=== PATIENT | male | born 1970 | race Caucasian/White ===

== ENCOUNTER 2018-01-27 20:38 | Emergency (ER) | payer BC ==
--- NOTE | 2018-01-27 20:41 | EDM.PDOC ---
ED HPI GENERAL MEDICAL PROBLEM - General Chief Complaint: Lower Extremity Injury/Pain Stated Complaint: LT LEG BRUISING Time Seen by Provider: 01/27/18 20:40 Source of Information: Reports: Patient History Limitations: Reports: No Limitations - History of Present Illness INITIAL COMMENTS - FREE TEXT/NARRATIVE: HISTORY AND PHYSICAL: History of present illness: 47-year-old male presenting in the [place] department with chief complaint of bruising to the left lower extremity. Patient broke his left ankle on Sunday one week ago and had plates place by Dr. Blankenship. Today he noticed so brusing going into his upper thigh and was concerned. It is not painful and he does admit to having his leg elevated like instructed. Denies loss of sensation or worsening pain. On exam patient has mild eccymosis to the need and above left groing. Discuss this normal brusing after surgery and is secondary to blood pooling. Review of systems: As per history of present illness and below otherwise all systems reviewed and negative. Past medical history: As per history of present illness and as reviewed below otherwise noncontributory. Surgical history: As per history of present illness and as reviewed below otherwise noncontributory. Social history: No reported history of drug or alcohol abuse. Family history: As per history of present illness and as reviewed below otherwise noncontributory. Physical exam: HEENT: Atraumatic, normocephalic, pupils reactive, negative for conjunctival pallor or scleral icterus, mucous membranes moist, throat clear, neck supple, nontender, trachea midline. Lungs: Clear to auscultation, breath sounds equal bilaterally, chest nontender. Heart: S1S2, regular, negative for clicks, rubs, or JVD. Abdomen: Soft, nondistended, nontender. Negative for masses or hepatosplenomegaly. Negative for costovertebral tenderness. Pelvis: Stable nontender. Genitourinary: Deferred. Rectal: Deferred. Extremities: Left lower leg soft splint in place, negative for cords or calf pain. Neurovascular unremarkable. Neuro: Awake, alert, oriented. Cranial nerves II through XII unremarkable. Cerebellum unremarkable. Motor and sensory unremarkable throughout. Exam nonfocal. Diagnostics: [] Therapeutics: [] Impression: Ecchymosis Plan: Reassured patient that this is normal bruising from blood pooling. Instructed him to call Dr. Blankenship's office tomorrow and follow-up with them. He should return to the emergency department if any new or worsening symptoms. Definitive disposition and diagnosis as appropriate pending reevaluation and review of above. L lower leg, Pain Score (Numeric/FACES): 3 - Related Data Allergies Allergy/AdvReac Type Severity Reaction Status Date / Time No Known Allergies Allergy Verified 01/27/18 20:53 Home Meds: Home Meds Ketorolac [Toradol] 10 mg PO ASDIRECTED PRN 01/22/18 [History] Acetaminophen/HYDROcodone [Turlock 325-5 MG] 1 - 2 tab PO Q4H PRN #80 tablet 01/23 [Rx] Past Medical History - Past Health History Medical/Surgical History: Denies Medical/Surgical History HEENT History: Reports: Other (See Below) Other HEENT History: uses reading glasses Cardiovascular History: Reports: None Respiratory History: Reports: Other (See Below) Other Respiratory History: his girlfriend thinks he has sleep apnea Gastrointestinal History: Reports: None Genitourinary History: Reports: None Musculoskeletal History: Reports: None Neurological History: Reports: None Psychiatric History: Reports: None Endocrine/Metabolic History: Reports: None Hematologic History: Reports: None Immunologic History: Reports: None Oncologic (Cancer) History: Reports: None Dermatologic History: Reports: None - Infectious Disease History Infectious Disease History: Reports: None - Past Surgical History Head Surgeries/Procedures: Reports: None Social & Family History - Family History Family Medical History: Noncontributory - Caffeine Use Caffeine Use: Reports: Energy Drinks Review of Systems - Review of Systems Review Of Systems: ROS reveals no pertinent complaints other than HPI. ED EXAM, GENERAL - Physical Exam Exam: See Below Course - Vital Signs Last Recorded V/S: Last Vital Signs Temp 97.8 F 01/27/18 20:49 Pulse 95 01/27/18 20:49 Resp 12 01/27/18 20:49 BP 125/88 01/27/18 20:49 Pulse Ox 93 L 01/27/18 20:49 Departure - Departure Time of Disposition: 21:10 Disposition: Home, Self-Care 01 Condition: Good Clinical Impression: Ecchymosis - Discharge Information Forms: ED Department Discharge Additional Instructions: My general discharge The following information is given to patients seen in the emergency department who are being discharged to home. This information is to outline your options for follow-up care. We provide all patients seen in our emergency department with a follow-up referral. The need for follow-up, as well as the timing and circumstances, are variable depending upon the specifics of your emergency department visit. If you don't have a primary care physician on staff, we will provide you with a referral. We always advise you to contact your personal physician following an emergency department visit to inform them of the circumstance of the visit and for follow-up with them and/or the need for any referrals to a consulting specialist. The emergency department will also refer you to a specialist when appropriate. This referral assures that you have the opportunity for follow-up care with a specialist. All of these measure are taken in an effort to provide you with optimal care, which includes your follow-up. Under all circumstances we always encourage you to contact your private physician who remains a resource for coordinating your care. When calling for follow-up care, please make the office aware that this follow-up is from your recent emergency room visit. If for any reason you are refused follow-up, please contact the [facility] Emergency Department at and asked to speak to the emergency department charge nurse. [facility] - [facility] [address], [address] [place] [address] Please call and follow-up with Dr. Blankenship's office as we discussed. Take medications as prescribed. Return to emergency department if any new or worsening symptoms.
[2018-01-27 21:21] VITALS: BP 180/79
== END 2018-01-27 21:19 | disposition home or self-care (01) ==
LOC: MW.ED 20:38
DX: S80.12XA Contusion of left lower leg, initial encounter (principal); X58.XXXA Exposure to other specified factors, initial encounter
CPT/HCPCS: 99282; 99283

== ENCOUNTER 2018-07-25 20:17 | Emergency (ER) | payer BC ==
--- NOTE | 2018-07-25 20:55 | EDM.PDOC ---
ED HPI GENERAL MEDICAL PROBLEM - General Chief Complaint: Lower Extremity Injury/Pain Stated Complaint: HURT BACK OF ANKLE Time Seen by Provider: 07/25/18 20:40 Source of Information: Reports: Patient History Limitations: Reports: No Limitations - History of Present Illness INITIAL COMMENTS - FREE TEXT/NARRATIVE: HISTORY AND PHYSICAL: History of present illness: Patient is a 47-year-old male who presents with complaints of pain to the back of his right ankle. He states he was playing soccer, but was walking when he heard and felt a "pop". He was continued to ambulate and bear weight without any difficulty but did have some soft tissue swelling and pain associated with this. He thought he may have ruptured or tore his Achilles tendon. He has had no weakness and has full range of motion and strength of his foot. Denies any numbness or tingling to the affected extremity. No previous injury or surgeries of the affected extremity. Review of systems: As per history of present illness and below otherwise all systems reviewed and negative. Past medical history: As per history of present illness and as reviewed below otherwise noncontributory. Surgical history: As per history of present illness and as reviewed below otherwise noncontributory. Social history: See social history for further information Family history: As per history of present illness and as reviewed below otherwise noncontributory. Physical exam: General: Well-developed and well-nourished 47-year-old male. Alert and oriented. Nontoxic appearing and in no acute distress. HEENT: Atraumatic, normocephalic, pupils equal and reactive bilaterally, negative for conjunctival pallor or scleral icterus, mucous membranes moist, TMs normal bilaterally, throat clear, neck supple, nontender, trachea midline. No drooling or trismus noted. No meningeal signs. No hot potato voice noted. Lungs: Clear to auscultation, breath sounds equal bilaterally, chest nontender. Heart: S1S2, regular rate and rhythm without overt murmur Abdomen: Soft, nondistended, nontender. Negative for masses or hepatosplenomegaly. Negative for costovertebral tenderness. Pelvis: Stable nontender. Genitourinary: Deferred. Rectal: Deferred. Skin: Intact, warm, dry. No lesions or rashes noted. Extremities: Moves all extremities per self without difficulty or deficits. He is able to flex and extend the right foot with equal/good strength. +Hayes test on right. Does have some mild swelling and pain with palpation to distal achilles area. No calf pain and is negative for cords. Neurovascular unremarkable. Neuro: Awake, alert, oriented. Cranial nerves II through XII unremarkable. Cerebellum unremarkable. Motor and sensory unremarkable throughout. Exam nonfocal. Notes: We'll do an x-ray as he was doing physical activity when this occurred to rule out any fracture or dislocations. Although I suspect this is a partial Achilles tendon tear. I encouraged him to follow-up with the orthopedic provider for further evaluation and management. We'll give him CAM walker boot and crutches for comfort and to be nonweightbearing. She was reviewed and discussed. He voices understanding and is agreeable to plan of care. Denies any further questions or concerns at this time. Diagnostics: X-ray Therapeutics: CAM walker boot, crutches Prescription: Tramadol (#15) Impression: Suspected achilles tendon tear, right Plan: 1. Please rest, ice and elevate the affected extremity as able. Use the CAM walker boot and crutches to be nonweight bearing until evaluated by the orthopedic provider. I would like you to follow-up them in the next 1-2 days. 2. Tylenol and/or ibuprofen as needed for pain management. Tramadol for moderate to severe pain. 3. Return to the ED as needed as discussed. Definitive disposition and diagnosis as appropriate pending reevaluation and review of above. right lower leg Pain Score (Numeric/FACES): 9 - Related Data Allergies Allergy/AdvReac Type Severity Reaction Status Date / Time No Known Allergies Allergy Verified 07/25/18 21:06 Home Meds: Home Meds Anti-Inflammatory 07/25/18 [History] Past Medical History - Past Health History Medical/Surgical History: Denies Medical/Surgical History HEENT History: Reports: Other (See Below) Other HEENT History: uses reading glasses Cardiovascular History: Reports: None Respiratory History: Reports: Other (See Below) Other Respiratory History: his girlfriend thinks he has sleep apnea Gastrointestinal History: Reports: None Genitourinary History: Reports: None Musculoskeletal History: Reports: None Neurological History: Reports: None Psychiatric History: Reports: None Endocrine/Metabolic History: Reports: None Hematologic History: Reports: None Immunologic History: Reports: None Oncologic (Cancer) History: Reports: None Dermatologic History: Reports: None - Infectious Disease History Infectious Disease History: Reports: None - Past Surgical History Head Surgeries/Procedures: Reports: None Social & Family History - Family History Family Medical History: Noncontributory - Caffeine Use Caffeine Use: Reports: Energy Drinks Review of Systems - Review of Systems Review Of Systems: ROS reveals no pertinent complaints other than HPI. ED EXAM, GENERAL - Physical Exam Exam: See Below (See dictation) Course - Vital Signs Last Recorded V/S: Last Vital Signs Temp 96.6 F 07/25/18 21:03 Pulse 86 07/25/18 21:03 Resp 19 07/25/18 21:03 BP 129/92 H 07/25/18 21:03 Pulse Ox 95 07/25/18 21:03 - Orders/Labs/Meds Orders: Active Orders 24 hr Category Date Time Status Ankle Min 3V Rt [CR] Stat Exams 07/25/18 21:06 Ordered DME for Discharge [COMM] Stat Oth 07/25/18 21:06 Ordered Meds: Medications Discontinued Medications Generic Name Dose Route Start Last Admin Trade Name Kevin PRN Reason Stop Dose Admin Hydrocodone Bitart/Acetaminophen 1 tab 07/25/18 21:06 Veyo 325-5 Mg PO 07/25/18 21:07 ONETIME ONE Departure - Departure Time of Disposition: 21:47 Disposition: Home, Self-Care 01 Clinical Impression: Achilles tendon tear Qualifiers: Encounter type: initial encounter Laterality: right Qualified Code(s): S86.011A - Strain of right Achilles tendon, initial encounter - Discharge Information Referrals: PCP,None [Primary Care Provider] - Forms: ED Department Discharge Additional Instructions: The following information is given to patients seen in the emergency department who are being discharged to home. This information is to outline your options for follow-up care. We provide all patients seen in our emergency department with a follow-up referral. The need for follow-up, as well as the timing and circumstances, are variable depending upon the specifics of your emergency department visit. If you don't have a primary care physician on staff, we will provide you with a referral. We always advise you to contact your personal physician following an emergency department visit to inform them of the circumstance of the visit and for follow-up with them and/or the need for any referrals to a consulting specialist. The emergency department will also refer you to a specialist when appropriate. This referral assures that you have the opportunity for follow-up care with a specialist. All of these measure are taken in an effort to provide you with optimal care, which includes your follow-up. Under all circumstances we always encourage you to contact your private physician who remains a resource for coordinating your care. When calling for follow-up care, please make the office aware that this follow-up is from your recent emergency room visit. If for any reason you are refused follow-up, please contact the [facility] Emergency Department at and asked to speak to the emergency department charge nurse. [facility] [address], [place] [address] [address] [facility] Special[facility] - [facility]opedic [facility] Professional [facility] [address] [place] [address], [address] [place] [address] 1. Please rest, ice and elevate the affected extremity as able. Use the CAM walker boot and crutches to be nonweight bearing until evaluated by the orthopedic provider. I would like you to follow-up them in the next 1-2 days. 2. Tylenol and/or ibuprofen as needed for pain management. Tramadol for moderate to severe pain. 3. Return to the ED as needed as discussed. - My Orders Last 24 Hours: My Active Orders 07/25/18 21:06 Ankle Min 3V Rt [CR] Stat DME for Discharge [COMM] Stat - Assessment/Plan Last 24 Hours: My Active Orders 07/25/18 21:06 Ankle Min 3V Rt [CR] Stat DME for Discharge [COMM] Stat
[2018-07-25] MEDS ORDERED: Acetaminophen/HYDROcodone 325-5 MG Tab PO ONE (21:06)
--- NOTE | 2018-07-25 21:56 | CR ---
INDICATION: Pain. TECHNIQUE: Three views. IMPRESSION: No acute fracture. Ankle mortise is in anatomic alignment. Mild degenerative narrowing and spurring anterior and medial margin of the tibiotalar ankle joint. No effusion. Dictated by Kirill Rene MD @ Jul 25 2018 9:54PM Signed by Dr. Kirill Rene @ Jul 25 2018 9:55PM
[2018-07-25 22:30] VITALS: BP 123/87
== END 2018-07-25 22:31 | disposition home or self-care (01) ==
LOC: MW.ED 20:17
DX: S86.011A Strain of right Achilles tendon, initial encounter (principal); X58.XXXA Exposure to other specified factors, initial encounter; Y93.66 Activity, soccer
CPT/HCPCS: 73610; 99283; A9270

== ENCOUNTER 2023-10-19 22:12 | Inpatient (IN) | payer BC, MEDICAID, OTHER ==
[2023-10-20] MEDS: Morphine 4 MG/ML Syringe IVPUSH ONE
[2023-10-20] MEDS: Ketamine 500 mg/10 ML MDV IV ONE (01:18)
[2023-10-20] MEDS: Propofol 200 MG/20 ML SDV IVPUSH ONE (01:19)
[2023-10-20] MEDS: Sodium Chloride 0.9% 1,000 ML IV ONE (01:20)
[2023-10-20 09:51] LABS: APPEARANCE,URINE CLEAR; COLOR,URINE ORANGE; GLUCOSE,URINE 500 mg/dL (NEGATIVE); KETONES,URINE 15 mg/dL (NEGATIVE); LEUKOCYTE ESTERASE,URINE NEGATIVE (NEGATIVE); NITRITE,URINE POSITIVE (NEGATIVE); OCCULT BLOOD,URINE NEGATIVE (NEGATIVE); PROTEIN,URINE 30 mg/dL (NEGATIVE)
[2023-10-20 09:57] LABS: BILIRUBIN,URINE MODERATE (NEGATIVE)
[2023-10-20 10:02] LABS: BACTERIA,URINE FEW (NEGATIVE); EPITHELIAL CELLS,URINE RARE (NONE-FEW); RBC,URINE 0-2 (0-2/HPF); WBC,URINE 0-1 (0-5/HPF)
[2023-10-20 10:03] LABS: MUCUS,URINE HEAVY (NONE-MOD)
[2023-10-20 10:09] LABS: BASOPHILS ABSOLUTE AUTO 0.06 K/uL (0.00-0.20); BASOPHILS PERCENT AUTO 0.8 % (0.0-1.0); EOSINOPHILS ABSOLUTE AUTO 0.02 K/uL (0.00-0.45); EOSINOPHILS PERCENT AUTO 0.3 % (0.0-6.0); HEMATOCRIT 32.4 % (42.0-52.0); HEMOGLOBIN 11.7 g/dL (14.0-18.0); IMMATURE GRAN ABSOLUTE AUTO 0.01 K/uL (0.00-0.05); IMMATURE GRAN PERCENT AUTO 0.1 % (0.0-0.4); LYMPHOCYTES ABSOLUTE AUTO 1.52 K/uL (1.00-4.80); LYMPHOCYTES PERCENT AUTO 21.1 % (24.0-44.0); MEAN CORPUSCULAR HGB CONC 36.1 g/dL (32.0-36.0); MEAN PLATELET VOLUME 10.4 fL (9.4-12.4); MONOCYTES ABSOLUTE AUTO 0.96 K/uL (0.00-0.80); MONOCYTES PERCENT AUTO 13.3 % (0.0-8.0); NEUTROPHILS ABSOLUTE AUTO 4.65 K/uL (1.80-7.70); NEUTROPHILS PERCENT AUTO 64.4 % (41.0-71.0); PLATELET COUNT,PLT 115 K/uL (150-400); RED BLOOD CELL COUNT 3.34 M/uL (4.52-5.90); WHITE BLOOD CELL COUNT,WBC 7.22 K/uL (3.9-11.3)
[2023-10-20 10:31] LABS: CALCIUM 7.7 mg/dL (8.5-10.1); CARBON DIOXIDE,CO2 21.4 mmol/L (21.0-32.0); CREATININE 0.7 mg/dL (0.8-1.3); EST CRCL DRUG DOSING (CG) 111.4 mL/min; POTASSIUM,K 2.8 mmol/L (3.5-5.1)
[2023-10-20] MEDS: Potassium Chloride 20 MEQ Tab.ER PO ONE (11:13)
[2023-10-20] MEDS: NS with KCl 40mEq 1,000 ML IV SCH (11:14)
[2023-10-20] MEDS: Magnesium Sulfate/Water 2 GM in Premix Bag 1 BAG IV ONE ×2 (11:43→19:00)
[2023-10-20] MEDS: cefTRIAXone 1 GM in Sodium Chloride 0.9% 50 ML IV ONE (11:44)
[2023-10-20] MEDS ORDERED: Thiamine 100 MG in Sodium Chloride 0.9% 100 ML IV SCH (14:00)
[2023-10-20] MEDS ORDERED: Acetaminophen 325 MG Tab PO PRN (14:01)
[2023-10-20] MEDS ORDERED: Polyethylene Glycol 3350 Powder 17 GM Packet PO PRN (14:01)
[2023-10-20] MEDS ORDERED: Acetaminophen 650 MG Supp RECTAL PRN (14:01)
[2023-10-20] MEDS: Thiamine 200 MG/2 ML MDV IVPUSH SCH (16:54)
[2023-10-20] MEDS: Folic Acid 1 MG/0.2 ML UD Syringe IV SCH (16:54)
[2023-10-20] MEDS: Pantoprazole 40 MG in Sodium Chloride 0.9% 10 ML IVPUSH SCH (16:55)
[2023-10-20 17:24] LABS: CALCIUM 7.6 mg/dL (8.5-10.1); CARBON DIOXIDE,CO2 23.1 mmol/L (21.0-32.0); CREATININE 0.8 mg/dL (0.8-1.3); EST CRCL DRUG DOSING (CG) 97.47 mL/min; MAGNESIUM 1.6 mg/dL (1.8-2.4); POTASSIUM,K 4.3 mmol/L (3.5-5.1)
[2023-10-20] MEDS: Sodium Chloride 0.9% 1,000 ML IV SCH (18:56)
[2023-10-20] MEDS: Sulfamethoxazole/Trimethoprim 800-160 MG Tab PO SCH (19:01)
[2023-10-20 19:24] LABS: A/G RATIO 0.7 (0.9-1.6); ALBUMIN 2.6 g/dL (3.4-5.0); BILIRUBIN TOTAL 4.8 mg/dL (0.2-1.0); CALCIUM 7.7 mg/dL (8.5-10.1); CARBON DIOXIDE,CO2 21.3 mmol/L (21.0-32.0); CREATININE 0.8 mg/dL (0.8-1.3); EST CRCL DRUG DOSING (CG) 97.47 mL/min; PHOSPHORUS 1.7 mg/dL (2.6-4.7); POTASSIUM,K 4.3 mmol/L (3.5-5.1); PROTEIN TOTAL,TP 6.4 g/dL (6.4-8.2); TSH ULTRASENSITIVE 1.03 uIU/mL (0.36-3.74)
[2023-10-21 00:50] LABS: C. TRACHOMATIS BY PCR NOT DETECTED; N. GONORRHOEAE BY PCR NOT DETECTED
[2023-10-21] MEDS: Melatonin 3 MG Tab PO PRN (03:12)
[2023-10-21 05:49] LABS: HEMATOCRIT 30.5 % (42.0-52.0); HEMOGLOBIN 10.9 g/dL (14.0-18.0); MEAN CORPUSCULAR HEMOGLOBIN 34.8 pg (28.0-32.0); MEAN CORPUSCULAR HGB CONC 35.7 g/dL (32.0-36.0); MEAN CORPUSCULAR VOLUME 97.4 fL (83.0-99.0); MEAN PLATELET VOLUME 11.5 fL (9.4-12.4); PLATELET COUNT,PLT 109 K/uL (150-400); RED BLOOD CELL COUNT 3.13 M/uL (4.52-5.90); WHITE BLOOD CELL COUNT,WBC 5.62 K/uL (3.9-11.3)
[2023-10-21 06:22] LABS: A/G RATIO 0.7 (0.9-1.6); ALBUMIN 2.7 g/dL (3.4-5.0); BILIRUBIN TOTAL 4.5 mg/dL (0.2-1.0); CALCIUM 7.7 mg/dL (8.5-10.1); CARBON DIOXIDE,CO2 25.7 mmol/L (21.0-32.0); CREATININE 0.8 mg/dL (0.8-1.3); EST CRCL DRUG DOSING (CG) 97.47 mL/min; MAGNESIUM 1.8 mg/dL (1.8-2.4); PHOSPHORUS 1.1 mg/dL (2.6-4.7); POTASSIUM,K 3.8 mmol/L (3.5-5.1); PROTEIN TOTAL,TP 6.8 g/dL (6.4-8.2)
[2023-10-21] MEDS: Sodium Chloride 1 GM Tab PO ONE (08:28)
[2023-10-21] MEDS: Phosphorus #1 250 MG Tab PO SCH (08:33)
[2023-10-21] MEDS: Cyanocobalamin (Vitamin B12) 500 MCG Tab PO SCH (12:23)
[2023-10-21] MEDS ORDERED: Thiamine 200 MG/2 ML MDV IVPUSH ONE (12:23)
[2023-10-21] MEDS ORDERED: Thiamine 500 MG in Sodium Chloride 0.9% 100 ML IV SCH (14:00)
[2023-10-21 14:31] LABS: CREATININE 0.9 mg/dL (0.8-1.3); EST CRCL DRUG DOSING (CG) 86.64 mL/min; POTASSIUM,K 4.3 mmol/L (3.5-5.1)
[2023-10-21] MEDS: Thiamine 500 MG in Sodium Chloride 0.9% 250 ML IV SCH (14:32)
[2023-10-22] MEDS: LORazepam 1 MG Tab PO PRN (03:01)
[2023-10-22 07:07] LABS: HEMATOCRIT 29.2 % (42.0-52.0); HEMOGLOBIN 9.9 g/dL (14.0-18.0); MEAN CORPUSCULAR HEMOGLOBIN 33.6 pg (28.0-32.0); MEAN CORPUSCULAR HGB CONC 33.9 g/dL (32.0-36.0); MEAN PLATELET VOLUME 11.6 fL (9.4-12.4); PLATELET COUNT,PLT 114 K/uL (150-400); RED BLOOD CELL COUNT 2.95 M/uL (4.52-5.90); WHITE BLOOD CELL COUNT,WBC 4.92 K/uL (3.9-11.3)
[2023-10-22 07:28] LABS: A/G RATIO 0.7 (0.9-1.6); ALBUMIN 2.6 g/dL (3.4-5.0); CALCIUM 8.1 mg/dL (8.5-10.1); CARBON DIOXIDE,CO2 23.4 mmol/L (21.0-32.0); CREATININE 0.8 mg/dL (0.8-1.3); EST CRCL DRUG DOSING (CG) 97.47 mL/min; MAGNESIUM 1.3 mg/dL (1.8-2.4); PHOSPHORUS 1.8 mg/dL (2.6-4.7); PROTEIN TOTAL,TP 6.5 g/dL (6.4-8.2)
[2023-10-22] MEDS ORDERED: Thiamine 200 MG/2 ML MDV IVPUSH SCH (09:00)
[2023-10-22] MEDS: Magnesium Sulfate/Water 4 GM in Premix Bag 1 BAG IV ONE (09:20)
[2023-10-22] MEDS: Phosphorus #1 250 MG Tab PO SCH (09:28)
[2023-10-22] MEDS: Ondansetron 4 MG/2 ML SDV IVPUSH PRN (09:34)
[2023-10-22] MEDS ORDERED: PHENobarbital 32.4 MG Tab PO PRN ×4 (10:28→10:36)
[2023-10-22] MEDS ORDERED: PHENobarbitaL sodium 260 MG in Sodium Chloride 0.9% 100 ML IV PRN (10:28)
[2023-10-22] MEDS ORDERED: PHENobarbital Sodium 130 MG/ML SDV IVPUSH PRN (10:28)
[2023-10-22] MEDS: PHENobarbital 32.4 MG Tab PO PRN (12:55)
[2023-10-22 16:12] LABS: CALCIUM 8.2 mg/dL (8.5-10.1); CARBON DIOXIDE,CO2 23.6 mmol/L (21.0-32.0); CREATININE 0.7 mg/dL (0.8-1.3); EST CRCL DRUG DOSING (CG) 111.4 mL/min; MAGNESIUM 2.4 mg/dL (1.8-2.4); PHOSPHORUS 2.6 mg/dL (2.6-4.7); POTASSIUM,K 3.9 mmol/L (3.5-5.1)
[2023-10-22 17:18] VITALS: BP 103/72; PULSE 97
[2023-10-25] MEDS ORDERED: Thiamine 250 MG in Sodium Chloride 0.9% 100 ML IV SCH (09:00)
== END 2023-10-22 18:45 | disposition left against medical advice (07) | DRG 894 ==
LOC: MW.ED 22:12 → MW.MS 10-20 12:35 → OBSVTOIN 10-22 10:29
PROVIDERS: ADMIT Family Medicine; ATTEND Family Medicine
DX: F10.139 Alcohol abuse with withdrawal, unspecified (principal); N39.0 Urinary tract infection, site not specified; E51.2 Wernicke's encephalopathy; E83.42 Hypomagnesemia; E87.6 Hypokalemia; E83.51 Hypocalcemia; S43.014A Anterior dislocation of right humerus, initial encounter; W10.8XXA Fall (on) (from) other stairs and steps, initial encounter; R31.9 Hematuria, unspecified; Z86.16 Personal history of COVID-19; Z87.891 Personal history of nicotine dependence
CPT/HCPCS: 23655; 36415; 70450; 70450-26; 71101-26-RT; 71101-RT; 72125; 72125-26; 73030-26-RT; 73030-RT; 73060-26-RT; 73060-RT; 73080-26-RT; 73080-RT; 80048; 80053; 80307; 81001; 82550; 82947; 83690; 83735; 84100; 84443; 85025; 85027; 87491; 87591; 97162-GP; 99283; A9270-GY; C9113; J0696; J2270; J2405; J2704; J3360; J3411; J3475; J3480; J3490; J7030; J7050

== ENCOUNTER 2023-11-25 13:47 | Emergency (ER) | payer MEDICAID ==
[2023-11-25 14:48] VITALS: BP 122/87; PULSE 129
== END 2023-11-25 17:25 | disposition home or self-care (01) ==
LOC: MW.ED 13:47
DX: S49.91XA Unspecified injury of right shoulder and upper arm, initial encounter (principal); X58.XXXA Exposure to other specified factors, initial encounter
CPT/HCPCS: 73030-26-RT; 73030-RT; 73060-26-RT; 73060-RT; 73080-26-RT; 73080-RT; 73090-26-RT; 73090-RT; 99283; 99284

== ENCOUNTER 2024-03-20 12:12 | Inpatient (IN) | payer MEDICAID ==
[2024-03-20] MEDS: Sodium Chloride 0.9% 1,000 ML IV ONE ×2 (13:15→14:19)
[2024-03-20 13:28] LABS: BASOPHILS ABSOLUTE AUTO 0.06 K/uL (0.00-0.20); BASOPHILS PERCENT AUTO 0.8 % (0.0-1.0); EOSINOPHILS ABSOLUTE AUTO 0.03 K/uL (0.00-0.45); EOSINOPHILS PERCENT AUTO 0.4 % (0.0-6.0); HEMATOCRIT 33.4 % (42.0-52.0); HEMOGLOBIN 12.2 g/dL (14.0-18.0); IMMATURE GRAN ABSOLUTE AUTO 0.03 K/uL (0.00-0.05); IMMATURE GRAN PERCENT AUTO 0.4 % (0.0-0.4); LYMPHOCYTES ABSOLUTE AUTO 1.13 K/uL (1.00-4.80); LYMPHOCYTES PERCENT AUTO 15.6 % (24.0-44.0); MEAN CORPUSCULAR HEMOGLOBIN 34.6 pg (28.0-32.0); MEAN CORPUSCULAR HGB CONC 36.5 g/dL (32.0-36.0); MEAN CORPUSCULAR VOLUME 94.6 fL (83.0-99.0); MEAN PLATELET VOLUME 11.6 fL (9.4-12.4); MONOCYTES ABSOLUTE AUTO 1.17 K/uL (0.00-0.80); MONOCYTES PERCENT AUTO 16.2 % (0.0-8.0); NEUTROPHILS ABSOLUTE AUTO 4.81 K/uL (1.80-7.70); NEUTROPHILS PERCENT AUTO 66.6 % (41.0-71.0); NRBC ABSOLUTE 0.02 K/uL (0.00-0.02); NRBC PERCENT 0.3 /100WBC (0.0-0.2); PLATELET COUNT,PLT 172 K/uL (150-400); RED BLOOD CELL COUNT 3.53 M/uL (4.52-5.90); WHITE BLOOD CELL COUNT,WBC 7.23 K/uL (3.9-11.3)
[2024-03-20 13:37] LABS: INR 1.27 (0.86-1.11); PTT,PARTIAL THROMBOPLSTIN TIME 26.5 SEC (23.9-30.7)
[2024-03-20] MEDS: Sodium Chloride 0.9% 2.5 ML Syringe FLUSH PRN (13:43)
[2024-03-20] MEDS: Ondansetron 4 MG/2 ML SDV IVPUSH ONE (13:43)
[2024-03-20] MEDS: Famotidine 20 MG/2 ML SDV IVPUSH ONE (13:43)
[2024-03-20] MEDS: cefTRIAXone 1 GM in Sodium Chloride 0.9% 50 ML IV ONE (13:43)
[2024-03-20] MEDS: Sodium Chloride 0.9% 10 ML Syringe FLUSH PRN (13:43)
[2024-03-20 13:50] LABS: A/G RATIO 0.9 (0.9-1.6); ALANINE AMINOTRANSFERASE,ALT 72 IU/L (14-63); ALBUMIN 3.6 g/dL (3.4-5.0); ALKALINE PHOSPHATASE 137 U/L (46-116); ASPARTATE AMNIOTRANSFERASE,AST 103 IU/L (15-37); BILIRUBIN TOTAL 3.9 mg/dL (0.2-1.0); BLOOD UREA NITROGEN,BUN 13 mg/dL (7.0-18.0); CALCIUM 8.7 mg/dL (8.5-10.1); CHLORIDE,CL 91 mmol/L (98-107); CREATININE 1.2 mg/dL (0.8-1.3); EST CRCL DRUG DOSING (CG) 64.24 mL/min; GLUCOSE RANDOM 226 mg/dL (74-106); LIPASE 74 U/L (16-77); MAGNESIUM 1.1 mg/dL (1.8-2.4); PRO B-TYPE NATRIUR PEPT,BNPPRO 45 pg/mL (0-125); PROTEIN TOTAL,TP 7.6 g/dL (6.4-8.2); SODIUM,NA 134 mmol/L (136-148)
[2024-03-20 13:51] LABS: BASE EXCESS VENOUS 6.2 (-2.0-3.0); PH,VENOUS 7.37 (7.31-7.41)
[2024-03-20 13:54] LABS: ESTIMATED GFR 72 mL/min (>60); POTASSIUM,K 2.2 mmol/L (3.5-5.1)
[2024-03-20 13:55] LABS: ETHANOL BLOOD MEDICAL < 3.0 mg/dL
[2024-03-20] MEDS ORDERED: Potassium Chloride 20 MEQ in Premix Bag 1 BAG IV ONE (13:55)
[2024-03-20] MEDS: Magnesium Sulfate (4.06 MEQ/ML) 5 GM/10 ML SDV IV ONE (14:12)
[2024-03-20] MEDS: Potassium Chloride 20 MEQ Tab.ER PO ONE ×2 (14:18→17:34)
[2024-03-20] MEDS: Magnesium Sulfate/Water Premix 2 GM in Premix Bag 1 BAG IV STA (14:19)
[2024-03-20] MEDS: NS with KCl 40mEq 1,000 ML IV ONE (14:19)
[2024-03-20 14:22] LABS: LACTIC ACID 2.7 mmol/L (0.4-2.0)
[2024-03-20] MEDS: Iopamidol 755 MG/ML 500 ML Multipack Bottle IVPUSH STA (14:22)
[2024-03-20 14:41] LABS: APPEARANCE,URINE CLEAR; GLUCOSE,URINE 100 mg/dL (NEGATIVE); KETONES,URINE 15 mg/dL (NEGATIVE); LEUKOCYTE ESTERASE,URINE NEGATIVE (NEGATIVE); NITRITE,URINE POSITIVE (NEGATIVE); OCCULT BLOOD,URINE NEGATIVE (NEGATIVE); PROTEIN,URINE TRACE mg/dL (NEGATIVE)
[2024-03-20 14:43] LABS: BILIRUBIN,URINE SMALL (NEGATIVE); COLOR,URINE ORANGE
[2024-03-20 14:49] LABS: BACTERIA,URINE RARE (NEGATIVE); EPITHELIAL CELLS,URINE RARE (NONE-FEW); RBC,URINE NONE SEEN (0-2/HPF); WBC,URINE 0-2 (0-5/HPF)
[2024-03-20 14:50] LABS: AMPHETAMINES SCREEN, URINE NEGATIVE (CUTOFF=500); BARBITURATE SCREEN,URINE NEGATIVE (CUTOFF=200); BENZODIAZEPINES SCREEN,URINE NEGATIVE (CUTOFF=150); BUPRENORPHINE SCREEN,URINE NEGATIVE (CUTOFF=10); METHADONE SCREEN, URINE NEGATIVE (CUTOFF=200); METHAMPHETAMINES SCREEN, URINE NEGATIVE (CUTOFF=500); OXYCODONE SCREEN,URINE NEGATIVE (CUT0FF=100); PCP SCREEN,URINE NEGATIVE (CUTOFF=25); THC SCREEN,URINE 20 NG/ML NEGATIVE (CUTOFF=50)
[2024-03-20] MEDS ORDERED: Sodium Chloride 0.9% 10 ML Syringe FLUSH PRN (16:28)
[2024-03-20] MEDS ORDERED: Sodium Chloride 0.9% 2.5 ML Syringe FLUSH PRN (16:28)
[2024-03-20] MEDS ORDERED: Ondansetron 4 MG/2 ML SDV IVPUSH PRN (16:28)
[2024-03-20] MEDS ORDERED: LORazepam 1 MG Tab PO PRN (16:32)
[2024-03-20] MEDS ORDERED: Naloxone 0.4 MG/ML SDV IVPUSH PRN (16:38)
[2024-03-20] MEDS ORDERED: Morphine 2 MG/ML SYRINGE IVPUSH PRN (16:38)
[2024-03-20] MEDS: Magnesium Sulfate/Water Premix 2 GM in Premix Bag 1 BAG IV ONE (17:17)
[2024-03-20] MEDS: Pantoprazole 40 MG in Sodium Chloride 0.9% 10 ML IVPUSH SCH (17:28)
[2024-03-20] MEDS: Thiamine 500 MG in Sodium Chloride 0.9% 250 ML IV SCH (17:35)
[2024-03-20] MEDS: Folic Acid 1 MG/0.2 ML UD Syringe IV SCH (17:36)
[2024-03-20] MEDS: Sodium Chloride 0.9% 1,000 ML IV SCH (18:21)
[2024-03-20] MEDS: NS with KCl 40mEq 1,000 ML IV SCH (19:04)
[2024-03-20 20:40] LABS: CALCIUM 7.2 mg/dL (8.5-10.1); CARBON DIOXIDE,CO2 26.3 mmol/L (21.0-32.0); EST CRCL DRUG DOSING (CG) 77.09 mL/min; MAGNESIUM 2.2 mg/dL (1.8-2.4); POTASSIUM,K 3.4 mmol/L (3.5-5.1)
[2024-03-21] MEDS: Sodium Chloride 0.9% 1,000 ML IV STA (01:09)
[2024-03-21] MEDS: Loperamide 2 MG Cap PO PRN ×2 (01:58→08:40)
[2024-03-21 06:05] LABS: HEMATOCRIT 23.6 % (42.0-52.0); HEMOGLOBIN 8.1 g/dL (14.0-18.0); MEAN CORPUSCULAR HGB CONC 34.3 g/dL (32.0-36.0); MEAN CORPUSCULAR VOLUME 99.2 fL (83.0-99.0); PLATELET COUNT,PLT 116 K/uL (150-400); RED BLOOD CELL COUNT 2.38 M/uL (4.52-5.90); WHITE BLOOD CELL COUNT,WBC 3.76 K/uL (3.9-11.3)
[2024-03-21 06:19] LABS: INR 1.3 (0.86-1.11)
[2024-03-21 06:28] LABS: A/G RATIO 0.9 (0.9-1.6); ALBUMIN 2.4 g/dL (3.4-5.0); BILIRUBIN TOTAL 1.8 mg/dL (0.2-1.0); CALCIUM 6.8 mg/dL (8.5-10.1); CARBON DIOXIDE,CO2 24.7 mmol/L (21.0-32.0); CREATININE 0.7 mg/dL (0.8-1.3); EST CRCL DRUG DOSING (CG) 110.13 mL/min; MAGNESIUM 1.7 mg/dL (1.8-2.4); PHOSPHORUS 1.4 mg/dL (2.6-4.7); POTASSIUM,K 2.9 mmol/L (3.5-5.1); PROTEIN TOTAL,TP 5.2 g/dL (6.4-8.2)
[2024-03-21 06:30] LABS: EOSINOPHILS ABSOLUTE MAN 0.08 K/uL (0.00-0.45); EOSINOPHILS PERCENT MAN 2 % (0-6); LYMPHOCYTES ABSOLUTE MAN 1.17 K/uL (1.00-4.80); LYMPHOCYTES PERCENT MAN 31 % (24-44); MONOCYTES ABSOLUTE MAN 0.71 K/uL (0.00-0.80); MONOCYTES PERCENT MAN 19 % (0-8); SEG NEUTROPHILS PERCENT MAN 48 % (41-71)
[2024-03-21] MEDS: Potassium Chloride 20 MEQ Tab.ER PO ONE ×2 (06:58→13:09)
[2024-03-21] MEDS: Magnesium Sulfate/Water Premix 2 GM in Premix Bag 1 BAG IV ONE ×2 (07:02→17:24)
[2024-03-21] MEDS ORDERED: Potassium Phosphates 30 MMOLE, Magnesium Sulfate 2 GM in Sodium Chloride 0.9% 500 ML IV ONE (09:00)
[2024-03-21] MEDS: Potassium Phosphates 20 MMOLE in Sodium Chloride 0.9% 500 ML IV ONE (10:42)
[2024-03-21 15:07] LABS: CALCIUM 6.3 mg/dL (8.5-10.1); CARBON DIOXIDE,CO2 25.6 mmol/L (21.0-32.0); CREATININE 0.8 mg/dL (0.8-1.3); EST CRCL DRUG DOSING (CG) 96.36 mL/min; MAGNESIUM 1.7 mg/dL (1.8-2.4); PHOSPHORUS 2.5 mg/dL (2.6-4.7); POTASSIUM,K 3.8 mmol/L (3.5-5.1)
[2024-03-22 05:45] LABS: BASOPHILS ABSOLUTE AUTO 0.05 K/uL (0.00-0.20); EOSINOPHILS ABSOLUTE AUTO 0.06 K/uL (0.00-0.45); EOSINOPHILS PERCENT AUTO 1.2 % (0.0-6.0); HEMATOCRIT 25.5 % (42.0-52.0); HEMOGLOBIN 8.8 g/dL (14.0-18.0); IMMATURE GRAN ABSOLUTE AUTO 0.02 K/uL (0.00-0.05); IMMATURE GRAN PERCENT AUTO 0.4 % (0.0-0.4); LYMPHOCYTES PERCENT AUTO 29.8 % (24.0-44.0); MEAN CORPUSCULAR HEMOGLOBIN 34.5 pg (28.0-32.0); MEAN CORPUSCULAR HGB CONC 34.5 g/dL (32.0-36.0); MEAN PLATELET VOLUME 11.7 fL (9.4-12.4); MONOCYTES ABSOLUTE AUTO 0.96 K/uL (0.00-0.80); MONOCYTES PERCENT AUTO 19.1 % (0.0-8.0); NEUTROPHILS ABSOLUTE AUTO 2.44 K/uL (1.80-7.70); NEUTROPHILS PERCENT AUTO 48.5 % (41.0-71.0); PLATELET COUNT,PLT 148 K/uL (150-400); RED BLOOD CELL COUNT 2.55 M/uL (4.52-5.90); WHITE BLOOD CELL COUNT,WBC 5.03 K/uL (3.9-11.3)
[2024-03-22 05:55] LABS: INR 1.21 (0.86-1.11)
[2024-03-22 06:11] LABS: ALBUMIN 2.8 g/dL (3.4-5.0); BILIRUBIN TOTAL 1.1 mg/dL (0.2-1.0); CALCIUM 7.5 mg/dL (8.5-10.1); CARBON DIOXIDE,CO2 30.5 mmol/L (21.0-32.0); CREATININE 0.8 mg/dL (0.8-1.3); EST CRCL DRUG DOSING (CG) 96.36 mL/min; MAGNESIUM 1.5 mg/dL (1.8-2.4); PHOSPHORUS 1.4 mg/dL (2.6-4.7); POTASSIUM,K 3.8 mmol/L (3.5-5.1); PROTEIN TOTAL,TP 6.1 g/dL (6.4-8.2)
[2024-03-22 06:34] LABS: A/G RATIO 0.9 (0.9-1.6)
[2024-03-22] MEDS: Magnesium Sulfate/Water Premix 2 GM in Premix Bag 1 BAG IV ONE (08:16)
[2024-03-22] MEDS ORDERED: Potassium Phosphates 3 mMole/ML 15 ML SDV IV ONE (10:55)
[2024-03-22] MEDS: Potassium Phosphates 20 MMOLE in Sodium Chloride 0.9% 500 ML IV ONE (12:39)
[2024-03-22] MEDS: Phosphorus #1 250 MG Tab PO SCH (13:28)
[2024-03-22 19:19] VITALS: BP 127/87; PULSE 83
[2024-03-23 18:03] LABS: HAV AB IGM Negative (Negative); HBC IGM Negative (Negative); HEP B SURG AG Negative (Negative); HEP C AB BY CIA Negative (Negative); HEP C AB BY CIA INDEX 0.05 IV
== END 2024-03-22 16:18 | disposition home or self-care (01) | DRG 433 ==
LOC: MW.ED 12:12 → UNDOADMOB 15:07 → MW.MS 15:07 → OBSVTOIN 03-21 08:39 → INTOOBSV 03-21 08:39 → OBSVTOIN 03-21 10:15 → MW.MS 03-21 10:15
PROVIDERS: ADMIT Family Medicine; ATTEND Family Medicine
DX: K70.10 Alcoholic hepatitis without ascites (principal); E51.2 Wernicke's encephalopathy; E87.6 Hypokalemia; E83.42 Hypomagnesemia; I95.9 Hypotension, unspecified; D64.9 Anemia, unspecified; E86.0 Dehydration; F10.90 Alcohol use, unspecified, uncomplicated; R74.01 Elevation of levels of liver transaminase levels; E80.6 Other disorders of bilirubin metabolism; Z91.81 History of falling
CPT/HCPCS: 36415; 71045; 71045-26; 74177; 74177-26; 76705; 76705-26; 80048; 80053; 80074; 80305-QW; 80307; 81001; 82803; 83605; 83690; 83735; 83880; 84100; 84484; 85025; 85610; 85730; 87040; 87045; 87046; 87324; 87338; 87449; 87899; 93005; 93010; 96361; 96365; 96366; 96367; 96368; 96375; 96376; 97110-GO; 97162-GP; 97165-GO; 99284; 99285-25; A9270-GY; G0378; J0696; J2405; J2470; J3411; J3475; J3480; J3490; J7030; J7040; J7050; Q9967

== ENCOUNTER 2024-11-10 18:41 | Emergency (ER) | payer MEDICAID ==
[2024-11-10] MEDS: Sodium Chloride 0.9% 1,000 ML IV SCH (19:49)
[2024-11-10] MEDS: Ondansetron 4 MG/2 ML SDV IVPUSH ONE (19:50)
[2024-11-10 19:51] LABS: A/G RATIO 0.5 (0.9-1.6); ALBUMIN 1.8 g/dL (3.4-5.0); CALCIUM 7.4 mg/dL (8.5-10.1); CARBON DIOXIDE,CO2 29.8 mmol/L (21.0-32.0); CREATININE 1.7 mg/dL (0.8-1.3); EST CRCL DRUG DOSING (CG) 44.83 mL/min; PROTEIN TOTAL,TP 5.3 g/dL (6.4-8.2)
[2024-11-10 19:52] LABS: POTASSIUM,K 2.4 mmol/L (3.5-5.1)
[2024-11-10 19:53] LABS: BILIRUBIN TOTAL 27.5 mg/dL (0.2-1.0)
[2024-11-10 19:54] LABS: HEMATOCRIT 25.4 % (42.0-52.0); HEMOGLOBIN 9.3 g/dL (14.0-18.0); MEAN CORPUSCULAR HEMOGLOBIN 35.4 pg (28.0-32.0); MEAN CORPUSCULAR HGB CONC 36.6 g/dL (32.0-36.0); MEAN CORPUSCULAR VOLUME 96.6 fL (83.0-99.0); MEAN PLATELET VOLUME 11.4 fL (9.4-12.4); PLATELET COUNT,PLT 145 K/uL (150-400); RED BLOOD CELL COUNT 2.63 M/uL (4.52-5.90); WHITE BLOOD CELL COUNT,WBC 14.57 K/uL (3.9-11.3)
[2024-11-10 20:01] LABS: INR 2.85 (0.86-1.11); PTT,PARTIAL THROMBOPLSTIN TIME 49.9 SEC (23.9-30.7)
[2024-11-10 20:19] LABS: LYMPHOCYTES ABSOLUTE MAN 0.73 K/uL (1.00-4.80); LYMPHOCYTES PERCENT MAN 5 % (24-44); MONOCYTES ABSOLUTE MAN 1.46 K/uL (0.00-0.80); MONOCYTES PERCENT MAN 10 % (0-8); SEG NEUTROPHILS ABSOLUTE MAN 12.38 K/uL (1.80-7.70); SEG NEUTROPHILS PERCENT MAN 85 % (41-71); TARGET CELLS 1+ SLIGHT
[2024-11-10] MEDS: Iopamidol 755 MG/ML 500 ML Multipack Bottle IVPUSH ONE (20:19)
[2024-11-10] MEDS: Potassium Chloride 20 MEQ Tab.ER PO ONE (20:38)
[2024-11-10] MEDS: Potassium Chloride 20 MEQ in Premix Bag 1 BAG IV ONE (20:38)
[2024-11-10] MEDS: Magnesium Sulfate 2 GM/50 mL 2 GM in Premix Bag 1 BAG IV ONE (20:38)
[2024-11-10] MEDS: Folic Acid 1 MG/0.2 ML UD Syringe IV SCH (20:39)
[2024-11-10] MEDS: Thiamine 200 MG/2 ML MDV IVPUSH ONE (20:39)
[2024-11-10] MEDS: Folic Acid 1 MG/0.2 ML UD Syringe ONE (20:45)
[2024-11-11] MEDS: Sodium Chloride 0.9% 1,000 ML IV SCH ×2 (00:16→00:17)
[2024-11-11] MEDS: Cefepime 2 GM in Sodium Chloride 0.9% 50 ML IV ONE (00:33)
[2024-11-11 01:08] LABS: PRO B-TYPE NATRIUR PEPT,BNPPRO 306 pg/mL (0-125)
[2024-11-11] MEDS: Norepinephrine Bit/D5W Premix 250 ML IV SCH (01:14)
[2024-11-11 01:15] LABS: LACTIC ACID 3.2 mmol/L (0.4-2.0)
[2024-11-11 02:19] LABS: APPEARANCE,URINE SLT CLOUDY; COLOR,URINE YELLOW; GLUCOSE,URINE 100 mg/dL (NEGATIVE); KETONES,URINE TRACE mg/dL (NEGATIVE); LEUKOCYTE ESTERASE,URINE NEGATIVE (NEGATIVE); NITRITE,URINE NEGATIVE (NEGATIVE); OCCULT BLOOD,URINE TRACE-LYSED (NEGATIVE); PROTEIN,URINE TRACE mg/dL (NEGATIVE)
[2024-11-11 02:29] LABS: AMORPHOUS SEDIMENT,URINE LIGHT (NEGATIVE); BACTERIA,URINE FEW (NEGATIVE); BILIRUBIN,URINE LARGE (NEGATIVE); EPITHELIAL CELLS,URINE FEW (NONE-FEW); RBC,URINE 0-2 (0-2/HPF); WBC,URINE 0-2 (0-5/HPF)
[2024-11-11 03:20] VITALS: BP 100/65; PULSE 89
== END 2024-11-11 03:51 ==
LOC: MW.ED 18:41
DX: K80.00 Calculus of gallbladder with acute cholecystitis without obstruction (principal); K74.60 Unspecified cirrhosis of liver
CPT/HCPCS: 36415; 70450; 71045; 74177; 76705; 80053; 81001; 83605; 83735; 83880; 84484; 85025; 85610; 85730; 86850; 86900; 86901; 87040; 93005; 96361; 96365; 96366; 96367; 96368; 96375; 99285; A9270; J0692; J2405; J3411; J3475; J3480; J7030; Q9967; 93010; J3490